=== PATIENT | female | born 2000 | race Caucasian/White ===

== ENCOUNTER 2019-02-24 18:10 | Emergency (ER) | payer OTHER ==
[~2019-02-24] VITALS: Ht 157.5 cm; Wt 49.9 kg
== END 2019-02-24 22:42 | disposition home or self-care (01) ==
LOC: ER 18:10
DX: O21.0 Mild hyperemesis gravidarum (principal); Z3A.01 Less than 8 weeks gestation of pregnancy

== ENCOUNTER 2019-03-31 10:39 | Emergency (ER) | payer OTHER ==
[~2019-03-31] VITALS: Ht 157.5 cm; Wt 49.4 kg
[2019-03-31] MEDS ORDERED: FOLIC ACID1 MG (11:12)
[2019-03-31] MEDS ORDERED: ZOFRAN4 MG (11:12)
[2019-03-31] MEDS ORDERED: VITAFOL-OB CAP1 EACH (11:13)
== END 2019-03-31 16:04 | disposition home or self-care (01) ==
LOC: ER 10:39
DX: O21.0 Mild hyperemesis gravidarum (principal); O36.80X1 Pregnancy with inconclusive fetal viability, fetus 1; O26.891 Other specified pregnancy related conditions, first trimester; Z34.01 Encounter for supervision of normal first pregnancy, first trimester

== ENCOUNTER 2019-10-18 00:15 | Inpatient (IN) | payer OTHER ==
[~2019-10-18] VITALS: Ht 157.5 cm; Wt 4.1 kg
[~2019-10-18 00:15] MED LIST: FOLIC ACID1 MG; VITAFOL-OB CAP1 EACH; ZOFRAN4 MG
== END 2019-10-21 11:55 | disposition home or self-care (01) | DRG 788 ==
LOC: OBS/DEL 00:15 → LDR 01:27 → OB/GYN 01:27
PROVIDERS: ADMIT Obstetrics & Gynecology
PROC: BY4FZZZ Ultrasonography of Third Trimester, Single Fetus (ICD-10-PCS; 2019-10-18)
PROC: 4A1HXCZ Monitoring of Products of Conception, Cardiac Rate, External Approach (ICD-10-PCS; 2019-10-18)
PROC: 10D00Z1 Extraction of Products of Conception, Low, Open Approach (ICD-10-PCS; principal; 2019-10-18 14:00)
DX: O62.1 Secondary uterine inertia (principal); O36.63X1 Maternal care for excessive fetal growth, third trimester, fetus 1; Z3A.39 39 weeks gestation of pregnancy; Z37.0 Single live birth; Z22.330 Carrier of Group B streptococcus